=== PATIENT | female | born 1995 | race Caucasian/White ===

== ENCOUNTER 2023-07-04 13:00 | Emergency (ER) | payer BC ==
[~2023-07-04] VITALS: Ht 152.4 cm; Wt 50.0 kg
[2023-07-04 13:15] VITALS: O2SAT 99
[2023-07-04] MEDS ORDERED: IBUP-2030 MT (15:14)
[2023-07-04] MEDS ORDERED: DEXAMETHASONE 4MG TABLET PO ONE (15:15)
[2023-07-04] MEDS ORDERED: IBUPROFEN 800MG TABLET PO ONE (15:15)
[2023-07-04] MEDS ORDERED: IBUPROFEN 400MG TABLET PO NR (15:30)
[2023-07-04 15:40] VITALS: BP 123/80; PULSE 77; RESP 20; TEMP 97.9
== END 2023-07-04 15:45 | disposition home or self-care (01) ==
LOC: ER 13:20
DX: J02.9 Acute pharyngitis, unspecified (principal); R50.9 Fever, unspecified; R51.9 Headache, unspecified
CPT/HCPCS: 99283; J8540